=== PATIENT | female | born 1990 | race Caucasian/White ===

== ENCOUNTER 2018-12-06 17:48 | Emergency (ER) | payer SELFPAY ==
[~2018-12-06] VITALS: Wt 65.0 kg
[~2018-12-06 17:48] MED LIST: ACET325T33 PO
[2018-12-06] MEDS ORDERED: SOD CHLORIDE 0.9% 1,000 ML IV STA (20:09)
[2018-12-06] MEDS ORDERED: ACETAMINOPHEN 325 MG TAB PO STA (20:09)
[2018-12-06] MEDS ORDERED: ONDANSETRON 4 MG INJ IV STA (20:09)
[2018-12-06 21:58] VITALS: BP 109/58; PULSE 61; RESP 20
== END 2018-12-06 22:02 | disposition home or self-care (01) ==
LOC: FTE 17:48
DX: O26.892 Other specified pregnancy related conditions, second trimester (principal); R10.2 Pelvic and perineal pain; Z3A.16 16 weeks gestation of pregnancy
CPT/HCPCS: 36415; 76801; 81003; 84702; 85025; 86900; 86901; 87086; 96361; 96374; 99285; J2405; J7030